=== PATIENT | male | born 1985 | race Caucasian/White ===

== ENCOUNTER 2017-08-13 11:25 | Emergency (ER) | payer SELFPAY | END 2017-08-13 18:29 | disposition left against medical advice (07) | LOC: E/R 18:29 → FTE 11:25 → E/R 18:29 | DX: M54.5 Low back pain (principal); F11.23 Opioid dependence with withdrawal | CPT/HCPCS: 99284 ==

== ENCOUNTER 2017-08-13 15:10 | Emergency (ER) | payer OTHER ==
[2017-08-13] MEDS: ONDANSETRON (ODT) 4 MG TAB ODT (16:03)
[2017-08-13] MEDS: KETOROLAC 60 MG INJ IM (16:03)
== END 2017-08-13 16:55 | disposition home or self-care (01) ==
LOC: FTE 15:10
DX: F11.23 Opioid dependence with withdrawal (principal); R11.0 Nausea; F17.210 Nicotine dependence, cigarettes, uncomplicated
CPT/HCPCS: 96372; 99284-25

== ENCOUNTER 2017-08-22 12:21 | Emergency (ER) | payer OTHER ==
[2017-08-22 13:15] LABS: ADD MAN DIFF? NO
[2017-08-22 13:18] LABS: BASOPHILS % 0.3 % (0.0-2.0); EOSINOPHILS # 0.1 10^3/ul (0.0-0.5); HEMATOCRIT 47.8 % (42.0-52.0); HEMOGLOBIN 15.7 g/dl (14.0-18.0); LYMPHOCYTES # 1.9 10^3/ul (0.8-2.9); LYMPHOCYTES % 28.2 % (15.0-51.0); MEAN CORPUSCULAR HEMOGLOBIN 29.4 pg (29.0-33.0); MEAN CORPUSCULAR HGB CONC 32.8 g/dl (32.0-37.0); MEAN CORPUSCULAR VOLUME 89.5 fl (82.0-101.0); MEAN PLATELET VOLUME 9.9 fl (7.4-10.4); MONOCYTE # 0.4 10^3/ul (0.3-0.9); MONOCYTES % 5.9 % (0.0-11.0); NEUTROPHIL # 4.2 10^3/ul (1.6-7.5); NEUTROPHILS % 63.3 % (39.0-77.0); PLATELET COUNT 218 10^3/UL (140-415); RED BLOOD COUNT 5.34 10^6/ul (4.70-6.10); RED CELL DISTRIBUTION WIDTH 11.8 % (11.5-14.5)
[2017-08-22 13:18] LABS: WHITE BLOOD COUNT 6.6 10^3/ul (4.8-10.8)
[2017-08-22 13:37] LABS: ALANINE AMINOTRANSFERASE 305 IU/L (13-69); ALBUMIN 4.3 g/dl (3.3-4.9); ALBUMIN/GLOBULIN RATIO 1.26; ALKALINE PHOSPHATASE 73 IU/L (42-121); ANION GAP 15 (8-16); ASPARTATE AMINO TRANSFERASE 110 IU/L (15-46); BILIRUBIN,INDIRECT 0.2 mg/dl (0-1.1); BILIRUBIN,TOTAL 0.2 mg/dl (0.2-1.3); BLOOD UREA NITROGEN 13 mg/dl (7-20); CALCIUM 9.3 mg/dl (8.4-10.2); CARBON DIOXIDE 31 mmol/L (21-31); CHLORIDE 105 mmol/L (97-110); CREATININE 0.73 mg/dl (0.61-1.24); GLUCOSE 110 mg/dl (70-220); POTASSIUM 4.3 mmol/L (3.5-5.1); SODIUM 147 mmol/L (135-144); TOTAL PROTEIN 7.7 g/dl (6.1-8.1)
[2017-08-22 13:44] LABS: ETHANOL < 10.0 mg/dl
[2017-08-22 13:52] LABS: ADD UMIC NO; UR ASCORBIC ACID NEGATIVE (NEGATIVE); UR BILIRUBIN (Dip) NEGATIVE (NEGATIVE); UR BLOOD (Dip) NEGATIVE (NEGATIVE); UR CLARITY CLEAR (CLEAR); UR COLOR STRAW (YELLOW); UR GLUCOSE (Dip) NEGATIVE (NEGATIVE); UR KETONES (Dip) NEGATIVE (NEGATIVE); UR LEUKOCYTE ESTERASE (Dip) NEGATIVE Leu/ul (NEGATIVE); UR NITRITE (Dip) NEGATIVE (NEGATIVE); UR SPECIFIC GRAVITY (Dip) 1.006 (1.003-1.030); UR TOTAL PROTEIN (Dip) NEGATIVE (NEGATIVE); UR UROBILINOGEN (Dip) NEGATIVE (NEGATIVE)
[2017-08-22 14:02] LABS: ACETAMINOPHEN < 10.0 ug/ml (10.0-30.0); SALICYLATE < 1.0 mg/dl (5.0-30.0)
[2017-08-22 14:34] LABS: AMPHETAMINE/METHAMPHETAMINE Negative (NEGATIVE)
[2017-08-22 14:36] LABS: BARBITURATES Negative (NEGATIVE)
[2017-08-22 15:49] LABS: CANNABINOIDS Positive (NEGATIVE); COCAINE Negative (NEGATIVE)
[2017-08-22 16:06] LABS: BENZODIAZEPINES Negative (NEGATIVE); OPIATES Positive (NEGATIVE)
== END 2017-08-23 01:25 ==
LOC: E/R 08-23 01:25
DX: R45.851 Suicidal ideations (principal); F17.210 Nicotine dependence, cigarettes, uncomplicated
CPT/HCPCS: 80053; 80307; 81003; 85025; 99285

== ENCOUNTER 2018-08-26 16:27 | Emergency (ER) | payer SELFPAY, OTHER | END 2018-08-26 18:55 | disposition home or self-care (01) | LOC: FTE 18:55 | DX: J47.0 Bronchiectasis with acute lower respiratory infection (principal); Z87.891 Personal history of nicotine dependence | CPT/HCPCS: 71046; 87880; 99284-25 ==